=== PATIENT | female | born 1950 | race Caucasian/White ===

== ENCOUNTER 2019-11-23 09:35 | Emergency (ER) | payer MEDICARE ==
[~2019-11-23] VITALS: Ht 170.2 cm; Wt 80.7 kg
[2019-11-23 10:23] VITALS: BP 155/91
--- NOTE | 2019-11-23 11:28 | RAD ---
EXAM: 1. CHEST 2 VIEWS. 2. CERVICAL SPINE 3 VIEWS. 3. THORACIC SPINE 3 VIEWS. 4. LUMBAR SPINE 3 VIEWS. HISTORY: Right chest, neck and back pain after lifting injury. COMPARISON: None. FINDINGS: There are no confluent infiltrates. There is no pneumothorax or pleural effusion. The heart is not enlarged. There are no displaced right rib fractures. There are atherosclerotic calcifications of the aorta. No cervical fractures are identified. There is no prevertebral soft tissue swelling. Retrolisthesis at C3-4 measures 3 mm. Degenerative disc disease is mild to moderate at C5-6 and mild at C6-7. Osteopenia appears moderate. There is a minimal S-shaped thoracic scoliosis. Vertebral body heights are maintained, and no fractures are identified. Endplate remodeling indicates mild degenerative disc disease within the mid and lower thoracic spine. No lumbar fractures are identified. Alignment is maintained. Intervertebral disc heights are maintained for patient age with minimal endplate remodeling. IMPRESSION: 1. No confluent infiltrate. 2. No spinal fractures are identified. Mild degenerative changes for patient age as above. Electronically signed by: Jesse Munoz MD (11/23/2019 11:25 AM) [facility]
[2019-11-23 12:10] LABS: BILIRUBIN,URINE SMALL (NEG); CLARITY,URINE CLEAR; COLOR,URINE YELLOW; NITRITE,URINE NEGATIVE (NEG); PH,URINE 5.5; PROTEIN,URINE NEGATIVE (NEG-TRACE); UROBILINOGEN,URINE 0.2 mg/dL (0.2 mg/dL)
[2019-11-23 12:13] LABS: HYALINE CASTS, URINE MANY /HPF; SQUAMOUS EPITHELIAL CELL,UR MOD /LPF
[2019-11-23 12:15] LABS: BACTERIA,URINE FEW /HPF (0-FEW)
--- NOTE | 2019-11-23 12:33 | PHYS DOC ---
Past Medical History Past Medical History: GERD, High Cholesterol, Hypertension Past Surgical History: Hysterectomy Additional Past Surgical Histo: VEIN STRIPPING Alcohol Use: None Drug Use: None Adult General Chief Complaint Chief Complaint: BACK PAIN OR INJURY HPI HPI Patient is a 69 year old female who presents to the ED today complaining of 7 out of 10 coccyx pain radiating all the way to her entire back, symptoms began November 10, 2019, patient denies any known injury. She states the most she can remember she moved a refrigerator. She reports she was treated for UTI before November 10 2019 and denies any urinary symptoms. Review of Systems Review of Systems Constitutional: Denies fever or chills [] Eyes: Denies change in visual acuity, redness, or eye pain [] HENT: Denies nasal congestion or sore throat [] Respiratory: Denies cough or shortness of breath [] Cardiovascular: No additional information not addressed in HPI [] GI: Denies abdominal pain, nausea, vomiting, bloody stools or diarrhea [] : Denies dysuria or hematuria [] Musculoskeletal: Reports back pain from the coccyx all the way to the upper back Integument: Denies rash or skin lesions [] Neurologic: Denies headache, focal weakness or sensory changes [] All other systems were reviewed and found to be within normal limits, except as documented in this note. Allergies Allergies Allergies Coded Allergies Type Severity Reaction Last Updated Verified Penicillins Allergy Severe rash 11/23/19 Yes Physical Exam Physical Exam Constitutional: Well developed, well nourished, no acute distress, non-toxic appearance. [] HENT: Normocephalic, atraumatic, bilateral external ears normal, oropharynx moist, no oral exudates, nose normal. [] Eyes: PERRLA, EOMI, conjunctiva normal, no discharge. [] Neck: Normal range of motion, no tenderness, supple, no stridor. [] Cardiovascular:Heart rate regular rhythm, no murmur [] Lungs & Thorax: Bilateral breath sounds clear to auscultation [] Abdomen: Bowel sounds normal, soft, no tenderness, no masses, no pulsatile masses. [] Skin: Warm, dry, no erythema, no rash. [] Back: No tenderness, no CVA tenderness. [] Extremities: No tenderness, no cyanosis, no clubbing, ROM intact, no edema. [] Neurologic: Alert and oriented X 3, normal motor function, normal sensory function, no focal deficits noted. [] Psychologic: Affect normal, judgement normal, mood normal. [] Current Patient Data Vital Signs Vital Signs Date Time Temp Pulse Resp B/P (MAP) Pulse Ox O2 Delivery O2 Flow Rate FiO2 11/23/19 10:23 98.1 95 18 155/91 (112) 98 Room Air 98.1 Lab Values Laboratory Tests Test 11/23/19 11:30 Urine Collection Type Unknown Urine Color Yellow Urine Clarity Clear Urine pH 5.5 Urine Specific [place] >=1.030 Urine Protein Negative mg/dL (NEG-TRACE) Urine Glucose (UA) Negative mg/dL (NEG) Urine Ketones (Stick) Negative mg/dL (NEG) Urine Blood Negative (NEG) Urine Nitrite Negative (NEG) Urine Bilirubin Small (NEG) Urine Urobilinogen Dipstick 0.2 mg/dL (0.2 mg/dL) Urine Leukocyte Esterase Small (NEG) Urine RBC 1-2 /HPF (0-2) Urine WBC 5-10 /HPF (0-4) Urine Squamous Epithelial Cells Mod /LPF Urine Renal Epithelial Cells Few /LPF Urine Bacteria Few /HPF (0-FEW) Urine Hyaline Casts Many /HPF Urine Mucus Marked /LPF EKG EKG [] Radiology/Procedures Radiology/Procedures []PROCEDURE: CERVICAL SPINE 2-3V EXAM: 1. CHEST 2 VIEWS. 2. CERVICAL SPINE 3 VIEWS. 3. THORACIC SPINE 3 VIEWS. 4. LUMBAR SPINE 3 VIEWS. HISTORY: Right chest, neck and back pain after lifting injury. COMPARISON: None. FINDINGS: There are no confluent infiltrates. There is no pneumothorax or pleural effusion. The heart is not enlarged. There are no displaced right rib fractures. There are atherosclerotic calcifications of the aorta. No cervical fractures are identified. There is no prevertebral soft tissue swelling. Retrolisthesis at C3-4 measures 3 mm. Degenerative disc disease is mild to moderate at C5-6 and mild at C6-7. Osteopenia appears moderate. There is a minimal S-shaped thoracic scoliosis. Vertebral body heights are maintained, and no fractures are identified. Endplate remodeling indicates mild degenerative disc disease within the mid and lower thoracic spine. No lumbar fractures are identified. Alignment is maintained. Intervertebral disc heights are maintained for patient age with minimal endplate remodeling. IMPRESSION: 1. No confluent infiltrate. 2. No spinal fractures are identified. Mild degenerative changes for patient age as above. Electronically signed by: Jesse Munoz MD (11/23/2019 11:25 AM) [facility] DICTATED and SIGNED BY: SHAHBAZ MUNOZ MD DATE: 11/23/19 1125 Course & Med Decision Making Course & Med Decision Making Pertinent Labs and Imaging studies reviewed. (See chart for details) This is a 69-year-old female patient presenting to the ED today with pain starting from the coccyx all the way to her upper back, symptoms began November 10, 2019. Denies any actual injury. Urine appears contaminated. Cervical spine x-rays, lumbar spine x-rays, thoracic spine x-rays and chest x- rays were negative for any trauma noted for DJD. Dragon Disclaimer Dragon Disclaimer This electronic medical record was generated, in whole or in part, using a voice recognition dictation system. Departure Departure Impression: Primary Impression: DJD (degenerative joint disease) of cervical spine Additional Impressions: DJD (degenerative joint disease) of thoracic spine DJD (degenerative joint disease), lumbar Disposition: 01 HOME, SELF-CARE Condition: STABLE Referrals: UNKNOWN PCP NAME (PCP) Follow-up with your doctor in 1-2 weeks Patient Instructions: Arthritis, Degenerative-Brief Additional Instructions: You were evaluated in the emergency room for back pain, you were noted to have severe degenerative disease in your spine. Please consider following up with the primary care doctor as soon as you get back home. Scripts Hydrocodone/Apap 5-325 (NORCO 5-325 TABLET) 1 Each Tablet 1 TAB PO Q6HRS, #20 TAB Prov: GAETANO TOBIN [employer] 11/23/19 Cyclobenzaprine Hcl (CYCLOBENZAPRINE HCL) 10 Mg Tablet 1 TAB PO TID, #30 TAB Prov: GAETANO TOBIN [employer] 11/23/19 Problem Qualifiers Primary Impression: DJD (degenerative joint disease) of cervical spine Spinal osteoarthritis complication: unspecified spinal osteoarthritis Qualified Codes: M47.812 - Spondylosis without myelopathy or radiculopathy, cervical region Additional Impressions: DJD (degenerative joint disease) of thoracic spine Spinal osteoarthritis complication: unspecified spinal osteoarthritis Qualified Codes: M47.814 - Spondylosis without myelopathy or radiculopathy, thoracic region DJD (degenerative joint disease), lumbar Spinal osteoarthritis complication: unspecified spinal osteoarthritis Qualified Codes: M47.816 - Spondylosis without myelopathy or radiculopathy, lumbar region GAETANO TOBIN APRN Nov 23, 2019 12:33
[2019-11-23] MEDS ORDERED: HYDR-3164 PO (12:37)
[2019-11-23] MEDS ORDERED: CYCL10TA2 PO (12:37)
== END 2019-11-23 12:54 | disposition home or self-care (01) ==
LOC: ER 09:35
DX: M47.812 Spondylosis without myelopathy or radiculopathy, cervical region (principal); M47.814 Spondylosis without myelopathy or radiculopathy, thoracic region; M47.816 Spondylosis without myelopathy or radiculopathy, lumbar region; K21.9 Gastro-esophageal reflux disease without esophagitis; E78.00 Pure hypercholesterolemia, unspecified; I10 Essential (primary) hypertension; Z90.710 Acquired absence of both cervix and uterus; Z88.0 Allergy status to penicillin
CPT/HCPCS: 71046; 72040; 72072; 72100; 81001; 87086; 99285-25